=== PATIENT | male | born 1975 | race Caucasian/White ===

== ENCOUNTER 2021-04-17 17:52 | Observation (INO) | payer OTHER ==
[2021-04-17] MEDS ORDERED: PROTONIX 40 MG IV IV ONE ×3 (18:21→19:33)
[2021-04-17] MEDS ORDERED: Sodium Chloride 0.9% 1000 ML 1,000 ML IV STA (18:21)
[2021-04-17] MEDS ORDERED: Zofran 4 MG/2 ML VIAL IV ONE (18:21)
[2021-04-17 18:29] LABS: Hematocrit 30.9 % (42-50); Hemoglobin 10.4 gm/dl (12.5-18.0); Mean Corpuscular Hemoglobin 29.6 pg (26-32); Mean Corpuscular Hgb Concent. 33.7 g/dl (32-36); Mean Platelet Volume 10.3 fl (7.5-11.0); Platelet Count 297 K/mm3 (150-450); Red Blood Count 3.51 M/mm3 (4.1-5.6); Red Cell Distribution Width 13.2 % (11.5-14.0); White Blood Count 18.1 K/mm3 (4.0-10.5)
[2021-04-17] MEDS ORDERED: Sodium Chloride 0.9% 1000 ML 1,000 ML ONE (18:29)
[2021-04-17] MEDS ORDERED: Zofran 4 MG/2 ML VIAL ONE (18:29)
--- NOTE | 2021-04-17 18:45 | ERPHSYRPT ---
- History of Present Illness Time Seen by Provider: 04/17/21 17:57 Source: patient Exam Limitations: no limitations Patient Subjective Stated Complaint: pt had 3-4 black stools, nausea, no pain . Triage Nursing Assessment: pt alert, resp easy, skin w/d/p. abd soft, face mask in palce Physician History: 45 years old male with history of psoriasis, acid reflux not on any medications presented in the ER with chief complaint of dark-colored stool since yesterday. Patient reports having nausea without vomiting or abdominal pain. 3-4 episodes so far without any hematochezia. Does report having epigastric discomfort last week before started to have dark-colored stool. Patient reports feeling weak fatigued tired, lightheaded with some shortness of breath on activity since this morning. Does report taking daily ibuprofen. Timing/Duration: day(s) (2), gradual onset, worse Severity: moderate Associated Symptoms: nausea, shortness of breath, heartburn, weakness, No vomiting, No abdominal pain Allergies/Adverse Reactions: No Known Drug Allergies Allergy (Verified 04/21/21 07:23) Hx Tetanus, Diphtheria Vaccination/Date Given: No Hx Influenza Vaccination/Date Given: No Hx Pneumococcal Vaccination/Date Given: No Immunizations Up to Date: Yes Travel Risk - International Travel Have you traveled outside of the country in past 3 weeks: No - Coronavirus Screening Are you exhibiting any of the following symptoms?: No Close contact with a COVID-19 positive Pt in past 14-21 Days: No - Vaccine Status Have you recieved a Covid-19 vaccination: No - Review of Systems Constitutional: Fatigue, Weakness Eyes: No Symptoms Ears, Nose, & Throat: No Symptoms Respiratory: Dyspnea, Dyspnea on Exertion (ROGEL) Cardiac: No Symptoms Abdominal/Gastrointestinal: Nausea, Diarrhea, Melena Genitourinary Symptoms: No Symptoms Musculoskeletal: No Symptoms Skin: No Symptoms Neurological: No Symptoms Psychological: No Symptoms Endocrine: No Symptoms Hematologic/Lymphatic: No Symptoms Immunological/Allergic: No Symptoms - Past Medical History Pertinent Past Medical History: Yes Musculoskeletal History: Other GI Medical History: GERD Other Medical History: psorisis - Past Surgical History Past Surgical History: No - Social History Smoking Status: Current every day smoker How long have you smoked: YRS Exposure to second hand smoke: Yes Drug Use: methamphetamines Patient Lives Alone: No - Nursing Vital Signs Nursing Vital Signs: Initial Vital Signs Pulse Rate 98 H 04/17/21 18:10 Respiratory Rate 18 04/17/21 18:10 Blood Pressure 95/88 04/17/21 18:10 O2 Sat by Pulse Oximetry 99 04/17/21 18:10 Pain Scale Pain Intensity 2 - Physical Exam General Appearance: no apparent distress, alert Eye Exam: PERRL/EOMI, eyes nml inspection Ears, Nose, Throat Exam: normal ENT inspection, TMs normal, pharynx normal Neck Exam: normal inspection, supple, full range of motion Respiratory Exam: normal breath sounds, lungs clear Cardiovascular Exam: regular rate/rhythm, normal heart sounds Gastrointestinal/Abdomen Exam: soft, normal bowel sounds, No tenderness, No guarding Back Exam: normal inspection, normal range of motion Extremity Exam: normal inspection, normal range of motion, pelvis stable Neurologic Exam: alert, oriented x 3, cooperative, 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, normal mood/affect Skin Exam: normal color SpO2 Interpretation: normal SpO2: 99 O2 Delivery: Room Air Ordered Tests: Medication Summary Discontinued Medications Generic Name Dose Route Start Last Admin Trade Name Freq PRN Reason Stop Dose Admin Acetaminophen 650 mg 04/17/21 21:13 Acetaminophen 325 Mg Tablet PO 05/17/21 21:12 Q4H PRN PRN PAIN AND/OR FEVER Amoxicillin 1,000 mg 04/19/21 10:00 04/20/21 09:20 Amoxicillin Trihydrate 500 Mg Capsule PO 05/02/21 22:01 1,000 mg BID LUIS Administration Docusate Sodium 100 mg 04/19/21 10:00 04/20/21 09:24 Docusate Sodium 100 Mg Capsule PO 05/19/21 09:59 100 mg BID LUIS Administration Famotidine 20 mg 04/18/21 14:00 04/20/21 09:24 Famotidine 20 Mg/1 Vial IV 05/18/21 13:59 20 mg Q12HT LUIS Administration Ferrous Sulfate 325 mg 04/19/21 17:00 04/20/21 17:10 Ferrous Sulfate 325 Mg Tablet PO 05/19/21 16:59 325 mg BIDWM LUIS Administration Sodium Chloride 1,000 mls @ 999 mls/hr 04/17/21 18:21 04/17/21 19:37 Sodium Chloride 0.9% 1000 Ml IV 04/17/21 19:21 Infused .Q1H1M STA Infusion Sodium Chloride Confirm 04/17/21 18:29 Sodium Chloride 0.9% 1000 Ml Administered 04/17/21 18:30 Dose 1,000 mls @ ud .ROUTE .STK-MED ONE Pantoprazole Sodium 80 mg/ 500 mls @ 50 mls/hr 04/17/21 19:30 04/19/21 00:10 Sodium Chloride IV 05/17/21 19:29 50 mls/hr .Q10H LUIS 50 mls/hr Administration Sodium Chloride Confirm 04/17/21 19:33 Sodium Chloride 0.9% 500 Ml Administered 04/17/21 19:34 Dose 500 mls @ ud IV .STK-MED ONE Sodium Chloride 1,000 mls @ 125 mls/hr 04/17/21 21:13 04/19/21 00:09 Sodium Chloride 0.9% 1000 Ml IV 05/17/21 21:12 125 mls/hr .Q8H LUIS Administration Sodium Chloride Confirm 04/18/21 05:58 Sodium Chloride 0.9% 500 Ml Administered 04/18/21 05:59 Dose 500 mls @ ud IV .STK-MED ONE Ceftriaxone Sodium/Dextrose 1 g in 50 mls @ 100 mls/hr 04/18/21 14:00 04/20/21 09:20 Rocephin 1 Gm-D5w 50 Ml Bag IV 04/22/21 13:59 100 mls/hr Q24H10 LUIS Administration Sodium Chloride Confirm 04/20/21 14:28 Sodium Chloride 0.9% 1000 Ml Administered 04/20/21 14:29 Dose 1,000 mls @ ud .ROUTE .STK-MED ONE Ketamine HCl Confirm 04/18/21 17:09 Ketamine Hcl 50 Mg/Ml Administered 04/18/21 17:10 Dose 20 mg .ROUTE .STK-MED ONE Lorazepam 0.5 mg 04/19/21 08:56 04/20/21 09:25 Lorazepam 2 Mg/1 Ml 2 Mg Vial IV 05/19/21 08:55 0.5 mg Q6H PRN PRN Administration ANXIETY Magnesium Citrate 296 ml 04/20/21 16:00 Magnesium Citrate 296 Ml Solution PO 04/20/21 16:01 1600 LUIS Midazolam HCl Confirm 04/18/21 17:08 Midazolam Hcl 2 Mg/2 Ml Vial Administered 04/18/21 17:09 Dose 2 mg .ROUTE .STK-MED ONE Nicotine 21 mg 04/19/21 10:00 04/20/21 09:24 Nicotine 21 Mg/Patch Patch TOP 05/19/21 09:59 21 mg Q24H LUIS Administration Clarithromycin 500mg 1 each 04/20/21 10:00 04/20/21 10:31 Tablet PO 05/03/21 22:01 1 each BID LUIS Administration Ondansetron HCl 4 mg 04/17/21 18:21 04/17/21 18:33 Ondansetron Hcl 4 Mg/2 Ml Vial IV 04/17/21 18:22 4 mg STAT ONE Administration Ondansetron HCl Confirm 04/17/21 18:29 Ondansetron Hcl 4 Mg/2 Ml Vial Administered 04/17/21 18:30 Dose 4 mg .ROUTE .STK-MED ONE Ondansetron HCl 4 mg 04/17/21 21:13 Ondansetron Hcl 4 Mg/2 Ml Vial IV 05/17/21 21:12 Q6H PRN PRN NAUSEA/VOMITING Pantoprazole Sodium 40 mg 04/17/21 18:21 04/17/21 18:33 Pantoprazole 40 Mg Vial IV 04/17/21 18:22 40 mg STAT ONE Administration Pantoprazole Sodium Confirm 04/17/21 18:29 Pantoprazole 40 Mg Vial Administered 04/17/21 18:30 Dose 40 mg IV .STK-MED ONE Pantoprazole Sodium Confirm 04/17/21 19:33 Pantoprazole 40 Mg Vial Administered 04/17/21 19:34 Dose 80 mg IV .STK-MED ONE Pantoprazole Sodium Confirm 04/18/21 05:58 Pantoprazole 40 Mg Vial Administered 04/18/21 05:59 Dose 80 mg IV .STK-MED ONE Pantoprazole Sodium 40 mg 04/19/21 10:00 Protonix (Pantoprazole) 40 Mg Tablet PO 04/25/21 22:01 BID LUIS Pantoprazole Sodium 40 mg 04/19/21 10:00 04/20/21 09:24 Pantoprazole 40 Mg Vial IV 05/19/21 09:59 40 mg Q12H LUIS Administration Polyethylene Glycol 238 gm 04/20/21 17:00 Polyethylene Glycol 3350 238 Gm Powder PO 04/20/21 17:01 1700 LUIS Polyethylene Glycol/Electrolytes 4,000 ml 04/20/21 14:00 04/20/21 13:32 Sod Sulf/Sod/Nahco3/Kcl/Peg's 4000 Ml Bottle PO 04/20/21 14:01 4,000 ml ONCE@1400 ONE Administration Propofol Confirm 04/18/21 17:08 Propofol 10 Mg/Ml 20ml Vial Administered 04/18/21 17:09 Dose 200 mg IV .STK-MED ONE Propofol Confirm 04/18/21 17:16 Propofol 10 Mg/Ml 20ml Vial Administered 04/18/21 17:17 Dose 200 mg IV .STK-MED ONE Sucralfate 1,000 mg 04/19/21 22:00 04/19/21 22:03 Sucralfate 1000 Mg/10 Ml Suspension PO 05/19/21 21:59 1,000 mg QID LUIS Administration Sucralfate 1 g 04/20/21 08:00 04/20/21 17:10 Sucralfate 1 G Tablet PO 05/20/21 07:59 1 g ACHS LUIS Administration Lab/Rad Data: Laboratory Result Diagrams 04/17/21 18:21 04/17/21 18:43 Laboratory Results 04/17/21 04/17/21 04/17/21 Range/Units 19:58 18:56 18:43 WBC (4.0-10.5) K/mm3 RBC (4.1-5.6) M/mm3 Hgb (12.5-18.0) gm/dl Hct (42-50) % MCV (78-100) fl MCH (26-32) pg MCHC (32-36) g/dl RDW (11.5-14.0) % Plt Count (150-450) K/mm3 MPV (7.5-11.0) fl Segmented Neutrophils (36.-66.) % Band Neutrophils (0.0-2.0) % Lymphocytes (Manual) (24-44) % Monocytes (Manual) (0.0-12.0) % Platelet Estimate (NORMAL) RBC Morphology PT (9.4-12.5) SECONDS INR (0.8-3.0) APTT (25.1-36.5) SECONDS Sodium (137-145) mmol/L Potassium (3.5-5.1) mmol/L Chloride (98-107) mmol/L Carbon Dioxide (22-30) mmol/L Anion Gap (5-15) MEQ/L BUN (9-20) mg/dL Creatinine (0.66-1.25) mg/dL Estimated GFR ML/MIN Glucose (74-106) mg/dL Lactic Acid 1.6 (0.4-2.0) Calcium (8.4-10.2) mg/dL Total Bilirubin (0.2-1.3) mg/dL AST (17-59) U/L ALT (0-50) U/L Alkaline Phosphatase (38-126) U/L Serum Total Protein (6.3-8.2) g/dL Albumin (3.5-5.0) g/dL SARS-CoV-2 (PCR) NEGATIVE (NEGATIVE) ABO Group O Rh Factor POSITIVE Antibody Screen NEGATIVE (NEGATIVE) Crossmatch (COMPATIBLE) 04/17/21 04/17/21 04/17/21 Range/Units 18:43 18:43 18:21 WBC 18.1 H (4.0-10.5) K/mm3 RBC 3.51 L (4.1-5.6) M/mm3 Hgb 10.4 L (12.5-18.0) gm/dl Hct 30.9 L (42-50) % MCV 88.0 (78-100) fl MCH 29.6 (26-32) pg MCHC 33.7 (32-36) g/dl RDW 13.2 (11.5-14.0) % Plt Count 297 (150-450) K/mm3 MPV 10.3 (7.5-11.0) fl Segmented Neutrophils 75 H (36.-66.) % Band Neutrophils 4 H (0.0-2.0) % Lymphocytes (Manual) 19 L (24-44) % Monocytes (Manual) 2 (0.0-12.0) % Platelet Estimate NORMAL (NORMAL) RBC Morphology NORMAL PT 12.2 (9.4-12.5) SECONDS INR 1.03 (0.8-3.0) APTT 27.0 (25.1-36.5) SECONDS Sodium 136 L (137-145) mmol/L Potassium 4.1 (3.5-5.1) mmol/L Chloride 107 (98-107) mmol/L Carbon Dioxide 20 L (22-30) mmol/L Anion Gap 12.6 (5-15) MEQ/L BUN 40 H (9-20) mg/dL Creatinine 0.75 (0.66-1.25) mg/dL Estimated GFR > 60.0 ML/MIN Glucose 138 H (74-106) mg/dL Lactic Acid (0.4-2.0) Calcium 8.8 (8.4-10.2) mg/dL Total Bilirubin 0.60 (0.2-1.3) mg/dL AST 31 (17-59) U/L ALT 40 (0-50) U/L Alkaline Phosphatase 54 (38-126) U/L Serum Total Protein 6.0 L (6.3-8.2) g/dL Albumin 3.5 (3.5-5.0) g/dL SARS-CoV-2 (PCR) (NEGATIVE) ABO Group Rh Factor Antibody Screen (NEGATIVE) Crossmatch (COMPATIBLE) 04/17/21 Range/Units 18:20 WBC (4.0-10.5) K/mm3 RBC (4.1-5.6) M/mm3 Hgb (12.5-18.0) gm/dl Hct (42-50) % MCV (78-100) fl MCH (26-32) pg MCHC (32-36) g/dl RDW (11.5-14.0) % Plt Count (150-450) K/mm3 MPV (7.5-11.0) fl Segmented Neutrophils (36.-66.) % Band Neutrophils (0.0-2.0) % Lymphocytes (Manual) (24-44) % Monocytes (Manual) (0.0-12.0) % Platelet Estimate (NORMAL) RBC Morphology PT (9.4-12.5) SECONDS INR (0.8-3.0) APTT (25.1-36.5) SECONDS Sodium (137-145) mmol/L Potassium (3.5-5.1) mmol/L Chloride (98-107) mmol/L Carbon Dioxide (22-30) mmol/L Anion Gap (5-15) MEQ/L BUN (9-20) mg/dL Creatinine (0.66-1.25) mg/dL Estimated GFR ML/MIN Glucose (74-106) mg/dL Lactic Acid (0.4-2.0) Calcium (8.4-10.2) mg/dL Total Bilirubin (0.2-1.3) mg/dL AST (17-59) U/L ALT (0-50) U/L Alkaline Phosphatase (38-126) U/L Serum Total Protein (6.3-8.2) g/dL Albumin (3.5-5.0) g/dL SARS-CoV-2 (PCR) (NEGATIVE) ABO Group Rh Factor Antibody Screen (NEGATIVE) Crossmatch COMPATIBLE (COMPATIBLE) - Progress Progress: unchanged Progress Note: 04/17/21 20:00 45 years old is evaluated for melena with dizziness/lightheadedness. Patient was near syncopal on orthostatics with standing. Given fluid bolus and started on Protonix bolus followed by drip. Patient hemoglobin is 10 with elevated BUN and normal creatinine consistent with GI bleed. Type and screen. Patient needs to be observed and monitoring of H&H. Discussed with Dr. Jarvis, reviewed history and work-up and patient is accepted for admission. Does not have any abdominal tenderness at all, do not think needs imaging. Discussed with : Asif Will see patient in: hospital (observation) Counseled pt/family regarding: lab results, diagnosis - Departure Departure Disposition: Observation Clinical Impression: Upper GI bleed, Symptomatic anemia Condition: Stable Critical Care Time: No
[2021-04-17 18:47] LABS: INR 1.03 (0.8-3.0); PROTIME 12.2 SECONDS (9.4-12.5)
[2021-04-17 18:51] LABS: ALBUMIN 3.5 g/dL (3.5-5.0); ALKALINE PHOSPHATASE 54 U/L (38-126); ANION GAP 12.6 MEQ/L (5-15); BLOOD UREA NITROGEN 40 mg/dL (9-20); CHLORIDE 107 mmol/L (98-107); Calcium 8.8 mg/dL (8.4-10.2); Carbon Dioxide 20 mmol/L (22-30); Creatinine 1 0.75 mg/dL (0.66-1.25); EST GLOMERULAR FILTRATION RATE > 60.0 ML/MIN; Glucose 138 mg/dL (74-106); Potassium 4.1 mmol/L (3.5-5.1); SGOT/AST 31 U/L (17-59); SGPT/ALT 40 U/L (0-50); SODIUM 136 mmol/L (137-145)
[2021-04-17] MEDS ORDERED: Sodium Chloride 0.9% 500 ML 500 ML IV ONE (19:33)
[2021-04-17] MEDS: PROTONIX 40 MG IV*** 80 MG in Sodium Chloride 0.9% 500 ML 500 ML IV SCH (19:38)
[2021-04-17 19:46] LABS: BAND 4 % (0.0-2.0); Lymphocytes 19 % (24-44); Monocyte 2 % (0.0-12.0); Neutrophils 75 % (36.-66.); Platelet Estimate NORMAL (NORMAL); Total Cells Counted 100
[2021-04-17 19:50] LABS: ABO TYPING O; Antibody Screen NEGATIVE (NEGATIVE); RH TYPING POSITIVE
[2021-04-17] MEDS ORDERED: TYLENOL 325 MG PO PRN (21:13)
[2021-04-17] MEDS ORDERED: Zofran 4 MG/2 ML VIAL IV PRN (21:13)
[2021-04-17] MEDS: Sodium Chloride 0.9% 1000 ML 1,000 ML IV SCH (23:22)
[2021-04-18 05:43] LABS: Appearance CLEAR (CLEAR); Bacteria RARE /HPF (NEGATIVE); Bilirubin NEGATIVE (NEGATIVE); Blood NEGATIVE Ery/ul (0-5); Epithelial Cells RARE /HPF (FEW); Glucose NEGATIVE (NEGATIVE); Ketones NEGATIVE (NEGATIVE); Leukocyte Esterase TRACE (NEGATIVE); Mucus SLIGHT /HPF (NEGATIVE); Nitrite NEGATIVE (NEGATIVE); Protein,Urine Dip NEGATIVE (Negative); RBC 0-2 /HPF (0-2); Specific Gravity 1.025 (1.005-1.025); Urobilinogen NEGATIVE mg/dL (0-1)
[2021-04-18 05:50] LABS: Absolute Neutrophil Ct (ANC) 10.82 (1.4-6.9); BASOPHIL % 0.4 % (0.0-0.4); Basophil (Absolute #) 0.06 (0-0.4); Eosinophil % 0.9 % (0.00-5.0); Eosinophil (Absolute #) 0.15 (0-0.5); Hematocrit 26.6 % (42-50); Hemoglobin 8.5 gm/dl (12.5-18.0); Lymphocyte (Absolute #) 3.97 (1.0-4.6); Lymphocytes % 24.9 % (24.0-44.0); Mean Cell Volume 90.2 fl (78-100); Mean Corpuscular Hemoglobin 28.8 pg (26-32); Mean Platelet Volume 10.7 fl (7.5-11.0); Monocyte (Absolute #) 0.97 (0.0-1.3); Monocytes % 6.1 % (0.0-12.0); Neutrophil % 67.7 % (36.0-66.0); Platelet Count 276 K/mm3 (150-450); Red Blood Count 2.95 M/mm3 (4.1-5.6); Red Cell Distribution Width 13.3 % (11.5-14.0)
[2021-04-18] MEDS ORDERED: Sodium Chloride 0.9% 500 ML 500 ML IV ONE (05:58)
[2021-04-18] MEDS ORDERED: PROTONIX 40 MG IV IV ONE (05:58)
[2021-04-18 06:01] LABS: ALBUMIN 2.9 g/dL (3.5-5.0); ALKALINE PHOSPHATASE 50 U/L (38-126); BLOOD UREA NITROGEN 30 mg/dL (9-20); CHLORIDE 109 mmol/L (98-107); Calcium 8.2 mg/dL (8.4-10.2); Carbon Dioxide 22 mmol/L (22-30); Creatinine 1 0.89 mg/dL (0.66-1.25); EST GLOMERULAR FILTRATION RATE > 60.0 ML/MIN; Glucose 95 mg/dL (74-106); SGOT/AST 29 U/L (17-59); SGPT/ALT 37 U/L (0-50); SODIUM 136 mmol/L (137-145); Total Protein 5.4 g/dL (6.3-8.2)
[2021-04-18 06:03] LABS: Potassium 4.3 mmol/L (3.5-5.1)
[2021-04-18 06:06] LABS: ANION GAP 9.3 MEQ/L (5-15)
[2021-04-18] MEDS: PROTONIX 40 MG IV*** 80 MG in Sodium Chloride 0.9% 500 ML 500 ML IV SCH (06:06)
[2021-04-18] MEDS: Sodium Chloride 0.9% 1000 ML 1,000 ML IV SCH ×2 (07:55→16:40)
[2021-04-18] MEDS: Pepcid 20 MG VIAL IV SCH ×2 (14:36→21:27)
[2021-04-18] MEDS: ROCEPHIN 1 Gm-D5w 50 ml Bag** 1 G/50 ML IVPB IV SCH (14:41)
[2021-04-18 16:15] LABS: CROSS MATCH (PRBC) COMPATIBLE (COMPATIBLE)
[2021-04-18 16:19] LABS: Iron 53 ug/dL (49-181); Iron Saturation 15 % (20-39); TIBC 356 ug/dL (261-497)
[2021-04-18] MEDS ORDERED: Versed 2 MG/2 ML Injection ONE (17:08)
[2021-04-18] MEDS ORDERED: DIPRIVAN 200 MG/20 ML IV ONE ×2 (17:08→17:16)
[2021-04-18] MEDS ORDERED: Ketamine HCl 50 MG/ML ONE (17:09)
[2021-04-18 17:18] LABS: Ferritin 37.3 ng/mL (17.9-464); Folate (Folic Acid) 10.6 ng/mL (2.76 - >20)
[2021-04-19] MEDS: Sodium Chloride 0.9% 1000 ML 1,000 ML IV SCH (00:09)
[2021-04-19] MEDS: PROTONIX 40 MG IV*** 80 MG in Sodium Chloride 0.9% 500 ML 500 ML IV SCH (00:10)
[2021-04-19 00:58] LABS: Hematocrit 28.8 % (42-50); Hemoglobin 9.4 gm/dl (12.5-18.0)
[2021-04-19 05:31] LABS: Hematocrit 27.4 % (42-50); Hemoglobin 8.9 gm/dl (12.5-18.0); Mean Cell Volume 90.1 fl (78-100); Mean Corpuscular Hemoglobin 29.3 pg (26-32); Mean Corpuscular Hgb Concent. 32.5 g/dl (32-36); Mean Platelet Volume 10.4 fl (7.5-11.0); Platelet Count 254 K/mm3 (150-450); Red Blood Count 3.04 M/mm3 (4.1-5.6); Red Cell Distribution Width 13.8 % (11.5-14.0); White Blood Count 12.1 K/mm3 (4.0-10.5)
[2021-04-19 06:08] LABS: BLOOD UREA NITROGEN 18 mg/dL (9-20); CHLORIDE 112 mmol/L (98-107); Carbon Dioxide 23 mmol/L (22-30); Creatinine 1 1.08 mg/dL (0.66-1.25); EST GLOMERULAR FILTRATION RATE > 60.0 ML/MIN; Glucose 93 mg/dL (74-106); SODIUM 140 mmol/L (137-145)
[2021-04-19] MEDS: AMOXIL 500 MG PO SCH ×2 (09:36→22:02)
[2021-04-19] MEDS: Nicoderm CQ 21 MG TOP SCH (09:36)
[2021-04-19] MEDS: ROCEPHIN 1 Gm-D5w 50 ml Bag** 1 G/50 ML IVPB IV SCH (09:37)
[2021-04-19] MEDS: Pepcid 20 MG VIAL IV SCH ×2 (09:38→22:03)
[2021-04-19] MEDS: Colace 100 MG PO SCH ×2 (09:38→22:03)
[2021-04-19] MEDS: PROTONIX 40 MG IV IV SCH ×2 (09:46→22:04)
[2021-04-19] MEDS: Ativan 2 MG/1 ML VIAL IV PRN (09:46)
--- NOTE | 2021-04-19 09:46 | CONS ---
CONSULT DATE: 04/18/2021 This patient is seen for Dr. Mercer who is environmental service aide for our group today. 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 He took some recently. He had some dark stool since Sunday. He came to the emergency room apparently hemodynamically stable. At some point he had a hemoglobin of 8.5. The nurse said he was getting some blood. PAST MEDICAL HISTORY: He denied any chronic illnesses. He has never been told that he had varices or cirrhosis. He has history of psoriasis and reflux in the past. PAST SURGICAL HISTORY: He has not have any abdominal surgeries. He has not had any endoscopy in the past. HOME MEDICATIONS: He takes some PRN ibuprofen. ALLERGIES: NKDA. FAMILY HISTORY: Negative for stomach or colon cancer. SOCIAL HISTORY: He is a regular meth user. He used to be a heavy drinker but not recently. He is a smoker. REVIEW OF SYSTEMS: Fourteen systems reviewed per admission assessment. PHYSICAL EXAMINATION: GENERAL: No acute distress. HEENT: Sclera nonicteric. NECK: No JVD. CHEST: Equal excursion, nonlabored breathing. CVS: Regular rate and rhythm. ABDOMEN: Soft. No rebound. No guarding. No peritoneal signs. EXTREMITIES: No significant edema. NEURO: Alert, moving extremities symmetrically. PSYCH: Appropriate mood and affect. SKIN: Multiple tattoos. IMPRESSION: I am seeing this patient for Dr. Mercer who is environmental service aide for our group today. A 45-year-old gentleman with some dark stools, had some anemia, question of gastritis or peptic ulcer disease. It could be recurrent varices, telangiectasia or other etiology. I feel he will benefit from upper endoscopy, possible biopsy. Risks and benefits explained in detail including but not limited to bleeding or infection, risk of bowel injury or perforation possibly requiring further procedure, risk of sedation, risk of aspiration, risk of inability to diagnose the etiology of his symptoms. He does not have any obvious ulcer, looks like a sore so he might benefit from colonoscopy later this admission by Dr. Mercer. The patient understands there could be a small possibility could have bled from the small bowel which might not be readily diagnosed. He understands and he is agreeable to upper endoscopy if they have OR time today and if not do tomorrow. Risk of bleeding or infection, risk of bowel injury or perforation possibly requiring further procedure, risk of missed or nondiagnosis as well as risk of sedation or aspiration but not limited to. Will proceed with EGD possible biopsy when OR time available. Again, I am seeing this patient for Dr. Mercer who is environmental service aide for our group today. If he fails to elicit any obvious source of his anemia and/or melena, he may need colonoscopy by Dr. Mercer later in the admission.
[2021-04-19] MEDS ORDERED: Protonix 40MG Tablet PO SCH (10:00)
--- NOTE | 2021-04-19 13:16 | OP ---
SURGERY DATE/TIME: 04/18/2021 1707 PREOPERATIVE DIAGNOSIS: History of anemia, question of melena, need for upper endoscopy. POSTOPERATIVE DIAGNOSES: 1) No active bleeding. No evidence of duodenal ulcer. There is evidence of recent healing. 2) Mild gastritis. 3) Mild distal erosive esophagitis. 4) He was seen to have a possible hiatal hernia but the stomach could not be well distended to visualize very well. PROCEDURES: 1) EGD with cold biopsy of antrum for Helicobacter pylori. 2) Cold biopsies distal esophagus to evaluate for esophagitis. SURGEON: Dr. Darrius Mojica. ANESTHESIA: MAC. ESTIMATED BLOOD LOSS: Minimal. INDICATIONS: The patient was seen for Dr. Antwon Mercer who is adoption counselor for our group today. As noted above. Risks and benefits explained in detail and not limited to and consent obtained. DESCRIPTION OF PROCEDURE AND FINDINGS: The patient was taken to the endoscopy room. MAC anesthesia introduced. After official time out and no disagreement with planned procedure, a bite block positioned. Video gastroscope easily passed in the esophagus to the gastroesophageal junction about 40 cm through the patent pylorus to the third portion of the duodenum. Third portion of the duodenum unremarkable. Back towards in between the first and second portions of the duodenum, evidence of an ulcer with some partial healing. There was no active bleeding at this site. Scope pulled back in the stomach. He had some mild gastritis. Cold biopsy taken to evaluate for Helicobacter pylori. Good hemostasis noted. On retroflex no signs of any other masses or other lesions although it was difficult to distend the stomach adequately. It seems like he probably has at least possibly hiatal hernia but it is difficult to actually visualize endoscopically. Scope pulled back. Gastroesophageal junction 40 cm. It looked like he had some chronic erosions distal esophagus, mild chronic erosive esophagitis. No signs of any obvious mass. Cold biopsy taken to evaluate for Helicobacter pylori. Good hemostasis noted. Again, no active bleeding. If his hemoglobin does not stay up and if he stays in the hospital, again as I am seeing this patient for Dr. Mercer, could consider colonoscopy later this admission. Otherwise, if he is released he can follow up in the office.
[2021-04-19] MEDS: FEOSOL 325 MG PO SCH (17:22)
[2021-04-19 18:00] LABS: Hematocrit 28.7 % (42-50); Hemoglobin 9.4 gm/dl (12.5-18.0); Mean Cell Volume 90.3 fl (78-100); Mean Corpuscular Hemoglobin 29.6 pg (26-32); Mean Corpuscular Hgb Concent. 32.8 g/dl (32-36); Mean Platelet Volume 10.3 fl (7.5-11.0); Platelet Count 278 K/mm3 (150-450); Red Blood Count 3.18 M/mm3 (4.1-5.6); White Blood Count 18.2 K/mm3 (4.0-10.5)
[2021-04-19] MEDS ORDERED: Carafate SUSPENSION 1000 MG/10 ML PO SCH (22:00)
[2021-04-20] MEDS: Ativan 2 MG/1 ML VIAL IV PRN ×2 (01:28→09:25)
[2021-04-20 05:44] LABS: Hemoglobin 8.7 gm/dl (12.5-18.0); Mean Cell Volume 91.2 fl (78-100); Mean Corpuscular Hemoglobin 29.4 pg (26-32); Mean Corpuscular Hgb Concent. 32.2 g/dl (32-36); Mean Platelet Volume 10.7 fl (7.5-11.0); Platelet Count 270 K/mm3 (150-450); Red Blood Count 2.96 M/mm3 (4.1-5.6); Red Cell Distribution Width 14.1 % (11.5-14.0); White Blood Count 12.2 K/mm3 (4.0-10.5)
[2021-04-20 06:11] LABS: ANION GAP 10.7 MEQ/L (5-15); BLOOD UREA NITROGEN 16 mg/dL (9-20); CHLORIDE 111 mmol/L (98-107); Calcium 8.3 mg/dL (8.4-10.2); Carbon Dioxide 24 mmol/L (22-30); EST GLOMERULAR FILTRATION RATE > 60.0 ML/MIN; Glucose 108 mg/dL (74-106); Potassium 3.8 mmol/L (3.5-5.1); SODIUM 142 mmol/L (137-145)
[2021-04-20 08:15] LABS: BAND 1 % (0.0-2.0); Eosinophil 5 % (0.00-3.0); Lymphocytes 31 % (24-44); Monocyte 3 % (0.0-12.0); Neutrophils 60 % (36.-66.); Total Cells Counted 100
[2021-04-20 08:16] LABS: ANISOCYTOSIS 1+; Platelet Estimate NORMAL (NORMAL); Toxic Granulation 1+
[2021-04-20] MEDS: FEOSOL 325 MG PO SCH ×2 (08:22→17:10)
[2021-04-20] MEDS: Carafate 1 GM PO SCH ×3 (08:23→17:10)
[2021-04-20] MEDS: AMOXIL 500 MG PO SCH (09:20)
[2021-04-20] MEDS: ROCEPHIN 1 Gm-D5w 50 ml Bag** 1 G/50 ML IVPB IV SCH (09:20)
[2021-04-20] MEDS: Colace 100 MG PO SCH (09:24)
[2021-04-20] MEDS: Nicoderm CQ 21 MG TOP SCH (09:24)
[2021-04-20] MEDS: Pepcid 20 MG VIAL IV SCH (09:24)
[2021-04-20] MEDS: PROTONIX 40 MG IV IV SCH (09:24)
[2021-04-20] MEDS ORDERED: NON-FORMULARY ITEM PO SCH (10:00)
[2021-04-20] MEDS ORDERED: Golytely Solution 4000 ML PO ONE (14:00)
[2021-04-20 14:28] LABS: ABO TYPING O; Antibody Screen NEGATIVE (NEGATIVE); RH TYPING POSITIVE
[2021-04-20] MEDS ORDERED: Sodium Chloride 0.9% 1000 ML 1,000 ML ONE (14:28)
[2021-04-20 14:29] LABS: CROSS MATCH (PRBC) COMPATIBLE (COMPATIBLE)
[2021-04-20] MEDS ORDERED: CITROMA 296 ML PO SCH (16:00)
[2021-04-20] MEDS ORDERED: GAVILAX PO SCH (17:00)
[2021-04-20 19:53] LABS: Appearance CLEAR (CLEAR); Bilirubin NEGATIVE (NEGATIVE); Blood NEGATIVE Ery/ul (0-5); Glucose NEGATIVE (NEGATIVE); Ketones NEGATIVE (NEGATIVE); Leukocyte Esterase NEGATIVE (NEGATIVE); Nitrite NEGATIVE (NEGATIVE); Protein,Urine Dip NEGATIVE (Negative); Specific Gravity 1.008 (1.005-1.025); Urobilinogen NEGATIVE mg/dL (0-1)
[2021-04-25 16:39] VITALS: BP 134/92; PULSE 89; O2SAT 99
== END 2021-04-20 19:45 | disposition home or self-care (01) ==
LOC: ED 17:52 → MED SURG 21:10
PROVIDERS: ADMIT Family Medicine; ATTEND Family Medicine
DX: K92.2 Gastrointestinal hemorrhage, unspecified (principal); D50.9 Iron deficiency anemia, unspecified; K29.70 Gastritis, unspecified, without bleeding; K22.10 Ulcer of esophagus without bleeding; R42 Dizziness and giddiness; R53.83 Other fatigue; R19.7 Diarrhea, unspecified; K20.80 Other esophagitis without bleeding; N39.0 Urinary tract infection, site not specified; F17.200 Nicotine dependence, unspecified, uncomplicated; Z20.828 Contact with and (suspected) exposure to other viral communicable diseases; F15.90 Other stimulant use, unspecified, uncomplicated
CPT/HCPCS: 36000; 36415; 36430; 43239; 80048; 80053; 81001; 82607; 82728; 82746; 83540; 83550; 83605; 85014; 85018; 85025; 85027; 85610; 85730; 86850; 86900; 86901; 86922; 87086; 93268; 96374; 96375; 99285; G0328; G0378; P9016; U0003; 82274; 88305; J0696; J2060; J2250; J2405; J2704; A9270-GY

== ENCOUNTER 2021-04-21 06:52 | Day surgery (SDC) | payer OTHER ==
[2021-04-21] MEDS ORDERED: Lactated Ringers 1,000 ML IV ONE ×2 (07:14→07:30)
[2021-04-21] MEDS ORDERED: Lactated Ringers 1,000 ML IV SCH ×2 (07:30)
[2021-04-21 08:13] LABS: Hematocrit 34.7 % (42-50); Hemoglobin 11.3 gm/dl (12.5-18.0); Mean Cell Volume 90.1 fl (78-100); Mean Corpuscular Hemoglobin 29.4 pg (26-32); Mean Corpuscular Hgb Concent. 32.6 g/dl (32-36); Mean Platelet Volume 9.8 fl (7.5-11.0); Platelet Count 295 K/mm3 (150-450); Red Blood Count 3.85 M/mm3 (4.1-5.6); Red Cell Distribution Width 14.6 % (11.5-14.0); White Blood Count 13.2 K/mm3 (4.0-10.5)
[2021-04-21] MEDS ORDERED: DIPRIVAN 200 MG/20 ML IV ONE ×2 (09:21→09:35)
[2021-04-21] MEDS ORDERED: Versed 2 MG/2 ML Injection ONE (09:23)
[2021-04-21] MEDS ORDERED: Ketamine HCl 50 MG/ML ONE (09:24)
[2021-04-21 11:09] LABS: Eosinophil 2 % (0.00-3.0); Lymphocytes 23 % (24-44); Monocyte 3 % (0.0-12.0); Neutrophils 72 % (36.-66.); Platelet Estimate NORMAL (NORMAL); Total Cells Counted 100
--- NOTE | 2021-04-21 11:51 | OP ---
SURGERY DATE/TIME: 04/21/2021 0927 PREOPERATIVE DIAGNOSIS: Bloody stools. POSTOPERATIVE DIAGNOSIS: Moderate sigmoid diverticulosis, slightly redundant colon. PROCEDURE: Colonoscopy complete to cecum. SURGEON: Antwon Mercer M.D. ANESTHESIA: MAC. COMPLICATIONS: None. CONDITION: Stable. INDICATION: The patient had bloody stools in the hospital. He had an EGD. He is prepped for colonoscopy. DESCRIPTION OF PROCEDURE: He is taken to endoscopy. Left lateral decubitus position. MAC sedation provided. Anal digital examination satisfactory. Scope introduced. Anus normal. Rectum normal. Sigmoid - Moderate almost severe diverticulosis noted about 200 pockets. There was no signs of bleeding or inflammation. Descending, splenic, transverse, hepatic, ascending, cecum. Cecum, ileocecal valve well seen. Appendiceal orifice not seen. There were no signs of bleeding here. On withdrawal of the scope ascending, hepatic, transverse, splenic, descending, sigmoid. Again sigmoid moderate severe diverticulosis. Rectum, anus no signs of bleeding today. Significant sigmoid diverticulosis. Findings discussed with the in the waiting room. Ten year follow up.
[2021-04-25 16:56] VITALS: BP 130/90; PULSE 84; O2SAT 97
== END 2021-04-21 10:50 | disposition home or self-care (01) ==
LOC: SDC 06:52 → EDSTATUS 13:47
PROVIDERS: ATTEND Surgery
DX: K57.30 Diverticulosis of large intestine without perforation or abscess without bleeding (principal)
CPT/HCPCS: 36415; 85025; J2250; J2704

== ENCOUNTER 2021-05-13 21:08 | Emergency (ER) | payer OTHER ==
[2021-05-13] MEDS ORDERED: Adacel Vial IM ONE ×2 (21:43→21:44)
--- NOTE | 2021-05-13 21:43 | ERPHSYRPT ---
- History of Present Illness Time Seen by Provider: 05/13/21 21:30 Source: patient Exam Limitations: no limitations Patient Subjective Stated Complaint: pt states he was cutting stems off of hernandez and cut his finger too. Triage Nursing Assessment: pt alert and oriented, answers questions approp. pt ambulatory with steady gait noted. respirations nonlabored. laceration with skin flap to 2nd digit rt hand. minimal bleeding noted at this time. Physician History: Patient is a 45-year-old white male who shortly before arrival suffered a laceration to his right index finger distal phalanx involving the nailbed. The total length of the flap type laceration to the distal phalanx radial side is approximately 3 cm there is a small triangular portion of the distal nail that is involved. Occurred: just prior to arrival Method of Injury: incised Quality: throbbing Severity of Pain-Max: mild Severity of Pain-Current: mild Extremities Pain Location: 2nd finger: right (3 cm laceration involving a triangular area of the nailbed on the radial side) Modifying Factors: Improves With: nothing Associated Symptoms: none Allergies/Adverse Reactions: No Known Drug Allergies Allergy (Verified 05/13/21 21:33) Hx Tetanus, Diphtheria Vaccination/Date Given: No (unsure) Hx Influenza Vaccination/Date Given: No Hx Pneumococcal Vaccination/Date Given: No Immunizations Up to Date: No Travel Risk - International Travel Have you traveled outside of the country in past 3 weeks: No - Coronavirus Screening Are you exhibiting any of the following symptoms?: No Close contact with a COVID-19 positive Pt in past 14-21 Days: No - Vaccine Status Have you recieved a Covid-19 vaccination: No - Review of Systems Constitutional: No Fever, No Chills Eyes: No Symptoms Ears, Nose, & Throat: No Symptoms Respiratory: No Cough, No Dyspnea Cardiac: No Chest Pain, No Edema, No Syncope Abdominal/Gastrointestinal: No Abdominal Pain, No Nausea, No Vomiting, No Diarrhea Genitourinary Symptoms: No Dysuria Musculoskeletal: No Back Pain, No Neck Pain Skin: No Rash Neurological: No Dizziness, No Focal Weakness, No Sensory Changes Psychological: No Symptoms Endocrine: No Symptoms All Other Systems: Reviewed and Negative - Past Medical History Pertinent Past Medical History: Yes Neurological History: No Pertinent History ENT History: No Pertinent History Cardiac History: No Pertinent History Respiratory History: No Pertinent History Endocrine Medical History: No Pertinent History Musculoskeletal History: Other GI Medical History: GERD History: No Pertinent History Psycho-Social History: No Pertinent History Male Reproductive Disorders: No Pertinent History Other Medical History: psorisis. recent GI bleed had 2 blood transfusions this week in the hospital 04/17-04/20/21 pt had 4 units of blood in total this week - Past Surgical History Past Surgical History: No Neuro Surgical History: No Pertinent History Cardiac: No Pertinent History Respiratory: No Pertinent History Gastrointestinal: No Pertinent History Genitourinary: No Pertinent History Musculoskeletal: No Pertinent History Male Surgical History: No Pertinent History Other Surgical History: egd 04/19/21 - Social History Smoking Status: Current every day smoker How long have you smoked: age 16 Exposure to second hand smoke: No Drug Use: methamphetamines Patient Lives Alone: No - Nursing Vital Signs Nursing Vital Signs: Initial Vital Signs Temperature 97.8 F 05/13/21 21:23 Pulse Rate 107 H 05/13/21 21:23 Respiratory Rate 16 05/13/21 21:23 Blood Pressure 102/79 05/13/21 21:23 O2 Sat by Pulse Oximetry 99 05/13/21 21:23 Pain Scale Pain Intensity 0 - Physical Exam General Appearance: mild distress Eyes, Ears, Nose, Throat Exam: moist mucous membranes Neck Exam: non-tender, supple Back Exam: normal inspection, normal range of motion Shoulder Exam: normal inspection, non-tender Elbow/Forearm Exam: normal inspection, non-tender Wrist Exam: normal inspection, non-tender Hand Exam: laceration (Laceration right index finger distal phalanx a flap type laceration of the distal phalanx on the radial side involving a portion of the nail) Neuro/Tendon Exam: normal sensation, normal motor functions Mental Status Exam: alert, oriented x 3 Skin Exam: normal color, warm, dry SpO2 Interpretation: normal SpO2: 99 O2 Delivery: Room Air Procedures - Laceration/Wound Repair Right Upper Distal Finger Time of Procedure: 21:41 Wound Location: Right, hand (Index finger distal phalanx) Wound Length (cm): 3 Wound's Depth, Shape: flap Wound Explored: clean Irrigated: Yes Hibiclens Prep: Yes Anesthesia: 1% Lidocaine Volume Anesthetic (ccs): 3 Wound Debrided: minimal Wound Repaired With: sutures Suture Size/Type: 4-0, prolene Number of Sutures: 6 Layer Closure?: No Sterile Dressing Applied?: Yes Splint Applied?: Yes - Course Nursing assessment & vital signs reviewed: Yes - Progress Progress: improved - Departure Departure Disposition: Home Clinical Impression: Laceration of right index finger Condition: Stable Critical Care Time: No Referrals: HAI LAW [Primary Care Provider] - Follow up/PCP as directed Instructions: Wound Care (DC), Laceration Repair With Stitches (DC)
[2021-05-13 21:55] VITALS: BP 110/67; PULSE 105; O2SAT 98
== END 2021-05-13 21:58 | disposition home or self-care (01) ==
LOC: ED 21:08
DX: S61.310A Laceration without foreign body of right index finger with damage to nail, initial encounter (principal); W26.8XXA Contact with other sharp object(s), not elsewhere classified, initial encounter; Y93.H2 Activity, gardening and landscaping; Z72.0 Tobacco use
CPT/HCPCS: 12002; 90471; 90715; 99283